=== PATIENT | male | born 1960 | race Caucasian/White ===

== ENCOUNTER 2020-06-01 13:08 | Emergency (ER) | payer BC ==
[~2020-06-01] VITALS: Ht 167.6 cm; Wt 85.3 kg
[2020-06-01 13:10] VITALS: BP_SYST 144
[2020-06-01 14:54] VITALS: BP_SYST 144
== END 2020-06-01 14:54 | disposition home or self-care (01) ==
LOC: SED 13:08
DX: R10.31 Right lower quadrant pain (principal)
CPT/HCPCS: 99284